=== PATIENT | male | born 1990 | race African-American/Black ===

== ENCOUNTER 2017-04-01 22:09 | Emergency (ER) | payer MEDICAID, OTHER ==
[~2017-04-01] VITALS: Ht 172.7 cm; Wt 78.0 kg
[~2017-04-01 22:09] MED LIST: ALPR0.5T
[2017-04-01] MEDS ORDERED: ACETAMINOPHEN 500MG TABLET PO ONE (23:00)
[2017-04-01] MEDS ORDERED: IBUPROFEN 600MG TABLET PO ONE (23:00)
[2017-04-01 23:25] VITALS: BP 112/78
== END 2017-04-01 23:00 | disposition home or self-care (01) ==
LOC: ER 22:29
DX: S40.019A Contusion of unspecified shoulder, initial encounter (principal); F17.200 Nicotine dependence, unspecified, uncomplicated; X58.XXXA Exposure to other specified factors, initial encounter; Y93.89 Activity, other specified; Y92.89 Other specified places as the place of occurrence of the external cause; Y99.8 Other external cause status
CPT/HCPCS: 99283

== ENCOUNTER 2017-07-14 15:02 | Emergency (ER) | payer MEDICAID ==
[~2017-07-14] VITALS: Ht 177.8 cm; Wt 83.0 kg
[2017-07-14 21:36] VITALS: BP 128/67
== END 2017-07-14 21:39 | disposition home or self-care (01) ==
LOC: ER 16:41
DX: S61.210A Laceration without foreign body of right index finger without damage to nail, initial encounter (principal); F17.200 Nicotine dependence, unspecified, uncomplicated; W45.8XXA Other foreign body or object entering through skin, initial encounter; Y93.89 Activity, other specified; Y92.89 Other specified places as the place of occurrence of the external cause; Y99.8 Other external cause status
CPT/HCPCS: 12001; 99283; X7700; Z7610

== ENCOUNTER 2017-07-20 00:02 | Emergency (ER) | payer MEDICAID ==
[~2017-07-20] VITALS: Ht 170.2 cm; Wt 78.0 kg
[2017-07-20 00:13] VITALS: BP 127/75
== END 2017-07-20 01:46 | disposition home or self-care (01) ==
LOC: ER 00:02
DX: S61.213D Laceration without foreign body of left middle finger without damage to nail, subsequent encounter (principal); F17.200 Nicotine dependence, unspecified, uncomplicated; X58.XXXD Exposure to other specified factors, subsequent encounter; Y93.89 Activity, other specified; Y99.8 Other external cause status; Y92.89 Other specified places as the place of occurrence of the external cause
CPT/HCPCS: 99283

== ENCOUNTER 2023-12-31 23:16 | Emergency (ER) | payer MEDICAID ==
[~2023-12-31] VITALS: Ht 172.7 cm; Wt 75.0 kg
[2023-12-31 23:19] VITALS: O2SAT 98
[2024-01-01] MEDS: ACETAMINOPHEN 500MG TABLET PO ONE (01:35)
[2024-01-01] MEDS ORDERED: IBUP-2030 MT (03:21)
[2024-01-01] MEDS ORDERED: AMOX1TAB16 MT (03:21)
[2024-01-01 03:42] VITALS: BP 122/70; PULSE 99; RESP 15; TEMP 36.94740; O2SAT 99
== END 2024-01-01 03:45 | disposition home or self-care (01) ==
LOC: ER 23:16
DX: R51.9 Headache, unspecified (principal); M25.561 Pain in right knee
CPT/HCPCS: 70486; 73600; 99284